=== PATIENT | female | born 1985 | race Two or more races ===

== ENCOUNTER 2019-07-21 05:27 | Inpatient (IN) | payer OTHER ==
[2019-07-21 06:12] VITALS: BMI 42.9
[2019-07-21] MEDS ORDERED: Carboprost 250 MCG/ML AMP IM PRN (06:22)
[2019-07-21] MEDS ORDERED: Promethazine HCl 25 MG/ML VIAL IM PRN ×2 (06:22→12:10)
[2019-07-21] MEDS ORDERED: Ibuprofen 800 MG TAB PO PRN (06:22)
[2019-07-21] MEDS ORDERED: Diphenoxylate HCl/Atropine Tablet PO PRN ×2 (06:22)
[2019-07-21] MEDS ORDERED: Acetaminophen 500 MG TAB PO PRN (06:22)
[2019-07-21] MEDS ORDERED: Lidocaine 1% (PF) 30 ML VIAL SC PRN (06:22)
[2019-07-21] MEDS ORDERED: hydrALAZINE 20 MG/ML VIAL SLOW IVP PRN (06:22)
[2019-07-21] MEDS ORDERED: Ondansetron PF 4 MG/2 ML Vial IVP PRN ×2 (06:22→12:10)
[2019-07-21] MEDS ORDERED: Butorphanol Tartrate 1 MG/ML VIAL SLOW IVP PRN (06:22)
[2019-07-21] MEDS ORDERED: Misoprostol 200 MCG TAB PR PRN (06:22)
[2019-07-21] MEDS ORDERED: HYDROcodone/Acetaminophen 5/325 mg Tablet PO PRN ×2 (06:22)
--- NOTE | 2019-07-21 06:27 | PDOC.LDHP ---
Labor and Delivery H&P Chief complaint: scheduled induction HPI: 34 y/o at 38 week and 4 days with GHTN, Obesity for medical induction. Current gestational age (weeks): 38 Due date: 07/31/19 Grav: 1 Para: 0 Current complications: gestational hypertension Abnormal US findings: No Current medications: pre- vitamins Previous surgical history: none Allergies/Adverse Reactions: Allergies Allergy/AdvReac Type Severity Reaction Status Date / Time No Known Allergies Allergy Verified 07/21/19 06:03 Social history: none - Physical Exam Vital signs reviewed and normal: yes General: resting Heart: RRR Lungs: CTAB Abdomen: gravid Extremeties: no edema FHT: category 1 - Assessment L&D Assessment: medically indicated induction - Plan Plan: admit to L&D, cervical ripening
[2019-07-21] MEDS ORDERED: Misoprostol 100 MCG TAB VAG SCH (06:30)
[2019-07-21] MEDS ORDERED: NS w/ Oxytocin 10 units 500 ML IV SCH ×2 (06:30)
[2019-07-21] MEDS: Lactated Ringer's 1,000 ML IV SCH ×4 (07:15→18:39)
[2019-07-21 07:43] LABS: Hemoglobin 11.8 g/dL (12.0-16.0); Mean Corpuscular Volume 81.6 fL (78.0-98.0); Mean Platelet Volume 10.3 fL (7.4-10.4); Platelet Count 256 thou/uL (130-400); RBC Distribution Width 13.7 % (11.5-14.5); Red Blood Cell (RBC) Count 4.36 mill/uL (4.20-5.40); White Blood Cell (WBC) Count 10.8 thou/uL (4.8-10.8)
[2019-07-21 08:22] LABS: Syphilis Antibody Nonreactive (Nonreactive); Syphilis Antibody Index 0.03 S/CO (<1.00 Non-Reactive)
[2019-07-21 08:23] LABS: HBSAg Index 0.24 S/CO (0-0.99); Hep B Surf Ag Non-Reactive S/CO (NonReactive)
[2019-07-21] MEDS ORDERED: Fentanyl 4 mcg/Bup 0.1% Cadd 100 ML ONE ×2 (11:33→19:00)
[2019-07-21] MEDS ORDERED: Acetaminophen 325 MG TAB PO PRN (12:10)
[2019-07-21] MEDS ORDERED: EPHEDRINE 25 MG/5 ML SYRINGE SLOW IVP PRN (12:10)
[2019-07-21] MEDS ORDERED: diphenhydrAMINE 50 MG/ML VIAL IVP PRN (12:10)
[2019-07-21] MEDS ORDERED: Naloxone HCl 0.4 mg/ml Vial IVP PRN ×2 (12:10)
[2019-07-21] MEDS ORDERED: Lactated Ringer's 500 ML IV PRN (12:10)
[2019-07-21] MEDS ORDERED: Fentanyl 4 mcg/Bupivacaine 0.1% Cassette 100 ML EPIDURAL SCH (12:15)
[2019-07-21] MEDS ORDERED: Communication Order-Pharmacy FS SCH (12:15)
--- NOTE | 2019-07-21 18:38 | PDOC.LDPN ---
Labor & Delivery Progress Note - Subjective Subjective: comfortable - Objective Vital signs reviewed and normal: yes General: NAD, resting Uterine fundus: non tender Dilation: 5 Effacement: 100% Station: -2 AROM: meconium stained fluid IUPC placed: yes FSE placed: yes Resuscitative measures: amniofusion -: AROM light mec, IUPC/FSE placed. Fetus noted to be having recurrent variables after AROM. Amnioinfusion started.
[2019-07-21] MEDS: NS / Oxytocin 40 units/1000ml 1,000 ML IV PRN (23:35)
[2019-07-22] MEDS: NS / Oxytocin 40 units/1000ml 1,000 ML IV PRN (01:18)
[2019-07-22] MEDS ORDERED: Misoprostol 200 MCG TAB VAG PRN (01:40)
[2019-07-22] MEDS ORDERED: Preparation H Ointment 28 GM TUBE PR PRN (01:40)
[2019-07-22] MEDS ORDERED: Milk Of Magnesia 30 ML UDCUP PO PRN (01:40)
[2019-07-22] MEDS ORDERED: NS / Oxytocin 40 units/1000ml 1,000 ML IV SCH (01:40)
[2019-07-22] MEDS ORDERED: Benzocaine-Menthol 82.5 ML CAN TOP PRN (01:40)
[2019-07-22] MEDS ORDERED: Promethazine HCl 25 MG/ML VIAL IM PRN (01:40)
[2019-07-22] MEDS ORDERED: Bisacodyl 10 MG SUPP PR PRN (01:40)
[2019-07-22] MEDS ORDERED: hydrALAZINE 20 MG/ML VIAL SLOW IVP PRN (01:40)
[2019-07-22] MEDS ORDERED: diphenhydrAMINE 25 MG CAP PO PRN (01:40)
[2019-07-22] MEDS ORDERED: Zolpidem Tartrate 5 MG TAB PO PRN (01:40)
[2019-07-22] MEDS ORDERED: Ondansetron PF 4 MG/2 ML Vial IVP PRN (01:40)
[2019-07-22] MEDS ORDERED: HYDROcodone/Acetaminophen 5/325 mg Tablet PO PRN ×2 (01:40)
[2019-07-22] MEDS ORDERED: Lanolin Ointment 7 GM TUBE TOP PRN (01:40)
[2019-07-22] MEDS: Ibuprofen 800 MG TAB PO SCH ×3 (04:29→21:39)
[2019-07-22 06:03] LABS: Hemoglobin 11.2 g/dL (12.0-16.0); Mean Corpuscular HGB CONC 33.2 g/dL (32.0-36.0); Mean Corpuscular Volume 81.3 fL (78.0-98.0); Mean Platelet Volume 10.1 fL (7.4-10.4); Platelet Count 231 thou/uL (130-400); RBC Distribution Width 13.8 % (11.5-14.5); Red Blood Cell (RBC) Count 4.15 mill/uL (4.20-5.40); White Blood Cell (WBC) Count 16.6 thou/uL (4.8-10.8)
[2019-07-22] MEDS: Ferrous Sulfate 325 MG TAB PO SCH ×2 (07:51→17:22)
[2019-07-22] MEDS: Docusate Calcium (SURFAK) 240 MG CAP PO SCH ×2 (07:57→21:39)
[2019-07-22] MEDS: Prenatal Vitamin 1 TAB PO SCH (07:57)
[2019-07-22] MEDS ORDERED: Adacel (T-DAP) 0.5 ML SYRINGE IM ONE (09:00)
[2019-07-22] MEDS ORDERED: Varicella virus, LIVE 0.5 ML VIAL SC ONE (09:00)
[2019-07-22] MEDS ORDERED: Measles/Mumps/Rubella 10 MCG/0.5 ML VIAL SC ONE (09:00)
--- NOTE | 2019-07-22 12:54 | PDOC.PP ---
Post Progress Note Post Day #: 1 PO intake tolerated: yes Flatus: yes Ambulation: yes Vital Signs (12 hours) Temp Pulse Resp BP Pulse Ox 07/22/19 11:11 98.0 F 115 H 16 131/87 97 07/22/19 07:53 98.8 F 98 16 123/76 95 07/22/19 04:25 98.8 F 97 16 127/75 95 07/22/19 03:18 98.7 F 107 H 18 129/87 98 07/22/19 02:10 98.7 F 108 H 18 123/76 98 Weight Weight 250 lb - Physical Examination General: NAD Cardiovascular: no m/r/g, RRR Respiratory: clear to auscultation bilaterally, non-labored breathing Abdominal: + bowel sounds, lochia, no distention, appropriately TTP Extremities: negative homans (B) Neurological: no gross focal deficits Psychiatric: A&Ox3, normal affect Result Diagrams: 07/22/19 05:39 Additional Labs: Post Labs Blood Type B POSITIVE 07/21/19 08:34 Hep Bs Antigen Non-Reactive S/CO (NonReactive) 07/21/19 07:25
--- NOTE | 2019-07-22 13:32 | DN ---
DATE OF PROCEDURE: 07/21/2019 TIME: 2334 hours central daylight savings time. PREOPERATIVE DIAGNOSIS: Intrauterine at 38 weeks and four days with gestational hypertension and obesity. POSTOPERATIVE DIAGNOSIS: Intrauterine at 38 weeks and four days with gestational hypertension and obesity. PROCEDURE PERFORMED: Spontaneous vaginal delivery over intact perineum. FINDINGS: Viable male infant weighing 2986 g or 6 pounds and 9 ounces, Apgars 8 and 9. ESTIMATED BLOOD LOSS: 125 mL. COMPLICATIONS: None. PROCEDURE IN DETAIL: The patient presented to [facility] where she was admitted to the labor and delivery service. The patient underwent a normal and uneventful labor with normal cervical dilatation until she was found to be completely dilated. She was then allowed to push and was able to bring the baby down and delivered the baby in a vertex presentation without difficulties. Once the head delivered in occiput anterior position, the shoulders followed spontaneously along with the rest of the baby's body. Once out the baby's mouth and nose were bulb suctioned. The cord was clamped and cut and baby was handed to waiting attendants. Cord blood was collected. Gentle fundal massage was performed and the placenta delivered intact without problems. Hemostasis was assured. Quantitative blood loss was calculated. Inspection of the cervix, vaginal vault, and perineum did not reveal any lacerations needing suturing. Once again, hemostasis was within normal limits and the patient was allowed to recover in the labor and delivery room. Baby went to nursery. Job ID: [id number]
[2019-07-23] MEDS: Ibuprofen 800 MG TAB PO SCH ×2 (05:29→13:32)
[2019-07-23 08:10] VITALS: BP 118/77; TEMP 98
[2019-07-23] MEDS: Ferrous Sulfate 325 MG TAB PO SCH (09:54)
[2019-07-23] MEDS: Prenatal Vitamin 1 TAB PO SCH (10:45)
[2019-07-23] MEDS: Docusate Calcium (SURFAK) 240 MG CAP PO SCH (10:45)
== END 2019-07-23 16:41 | disposition home or self-care (01) | DRG 807 ==
LOC: L&D 05:27 → 3SE 07-22 03:04
PROVIDERS: ADMIT Obstetrics & Gynecology; ATTEND Obstetrics & Gynecology
PROC: 10E0XZZ Delivery of Products of Conception, External Approach (ICD-10-PCS; principal; 2019-07-21)
PROC: 10907ZC Drainage of Amniotic Fluid, Therapeutic from Products of Conception, Via Natural or Artificial Opening (ICD-10-PCS; 2019-07-21)
PROC: 3E033VJ Introduction of Other Hormone into Peripheral Vein, Percutaneous Approach (ICD-10-PCS; 2019-07-21)
PROC: 10H07YZ Insertion of Other Device into Products of Conception, Via Natural or Artificial Opening (ICD-10-PCS; 2019-07-21)
DX: O13.4 Gestational [pregnancy-induced] hypertension without significant proteinuria, complicating childbirth (principal); Z37.0 Single live birth; Z3A.38 38 weeks gestation of pregnancy; O99.214 Obesity complicating childbirth; E66.9 Obesity, unspecified; O77.0 Labor and delivery complicated by meconium in amniotic fluid
CPT/HCPCS: 36415; 51702; 85027; 86780; 86850; 86900; 86901; 87340; J2405; J2590